=== PATIENT | male | born 1960 | race Caucasian/White ===

== ENCOUNTER 2024-07-08 16:11 | Emergency (ER) | payer OTHER, SELFPAY ==
[2024-07-08 16:11] VITALS: BP 149/83; PULSE 64; RESP 14; TEMP 36.4; O2SAT 95
--- NOTE | 2024-07-08 16:16 | ED_ITS ---
HPI - Skin/Abscess/Foreign Bdy General Chief complaint: Skin/Abscess/Foreign Body Stated complaint: SWOLLEN HAND Time Seen by Provider: 07/08/24 16:16 Source: patient Mode of arrival: ambulatory Limitations: no limitations History of Present Illness HPI narrative: 63-year-old male with a history of hypertension presents to the ED with -- 2 cm splinter which went through his right middle finger. this happened 1 hour ago. tetanus status is uptodate. complaint: other ( Foreign body right middle finger) Onset (ago): hour(s) ( 1 hour ago) Tetanus up to date: yes Location: R hand ( right middle finger palmar aspect of the proximal phalanx) Quality: aching Pain Consistency: constant Associated symptoms: denies other symptoms Treatments prior to arrival: none Related Data Allergies Allergy/AdvReac Type Severity Reaction Status Date / Time No Known Allergies Allergy Verified 07/08/24 16:15 Review of Systems Review of Systems: All systems reviewed & are unremarkable except as noted in HPI and below PMFSH Past Medical History Medical History Hypertension Exam Const: General: no acute distress Orientation/consciousness: patient oriented x3 Limitations: no limitations HENMT: Head: normal to inspection Ears: external ears normal Face/Nose/Sinus: Normal external nose present Face and sinus: normal facial exam Mouth: Yes Normal oral and palatal mucosa present Throat: posterior oropharynx normal Eyes: Conjunctivae: conjunctivae normal Pupils: Equal, round and reactive pupils present EOM: EOMs intact bilaterally Direct Ophthalmoscopy: no photophobia Neck: Neck: normal visual inspection, no lymphadenopathy and no meningeal signs Chest: Chest palpation & inspection: normal inspection of the chest Resp: Effort & Inspection: normal respiratory effort Auscultation: clear to auscultation bilaterally Cardio: Rate: regular rate Rhythm: regular rhythm GI: Auscultation: normal bowel sounds Other: no tenderness/rigidity/rebound. : General: Yes no CVA tenderness Back/Spine/Pelvis: Back: no CVA tenderness Skin: Other: 2 cm splinter passing through and through palmar aspect of the middle finger proximal phalanx. Distal neurovascular bundle is intact. Swelling of the proximal phalanx Neuro: General: patient oriented x3 and moves all extremities Extrem: General: normal to inspection ( foreign body in th) Psych: Affect: normal affect Course Course Emergency Course: foreign body removed from right middle finger Vital Signs Vital signs: Vital Signs Temperature 36.4 C 07/08/24 16:11 Pulse Rate 64 07/08/24 16:11 Respiratory Rate 14 07/08/24 16:11 Blood Pressure 149/83 H 07/08/24 16:11 Pulse Oximetry 95 07/08/24 16:11 Oxygen Delivery Room Air 07/08/24 16:11 Temperature 36.4 C 07/08/24 16:11 Pulse Rate 64 07/08/24 16:11 Respiratory Rate 14 07/08/24 16:11 Blood Pressure 149/83 H 07/08/24 16:11 Pulse Oximetry 95 07/08/24 16:11 Oxygen Delivery Room Air 07/08/24 16:11 Procedures Foreign Body Removal Foreign Body #1: Foreign Body Removal Date: 07/08/24 Foreign Body Removal Time: 16:33 Site: right Description of foreign body: other ( splinters) Sedation/Analgesia: other ( 1% lidocaine infiltration) Technique: removal with forceps Complications: none Neurovascular: normal distal pulse and normal capillary fill MDM - Skin/Abscess/Foreign Bdy MDM Narrative Medical decision making narrative: foreign body right middle finger Differential Diagnosis Differential diagnosis: Likely cellulitis Discharge Plan Discharge Clinical Impression: Foreign body finger Patient Disposition: Home, Self-Care Condition: Stable Instructions: Antibiotic Form, Puncture Wound (ED) Additional Instructions: monitor for infection Patient Language: Burkinan Prescriptions: New sulfamethoxazole-trimethoprim [Bactrim DS] 800-160 mg tablet 1 tablet PO Q12H Qty: 14 0RF Follow-up/Referrals: UNKNOWN,DOCTOR [Primary Care Provider] - Time of Disposition: 16:32
[2024-07-08] MEDS: LIDOCAINE 1% LOCAL INJ 10 ML VIAL 5 ML INFILTRATE (16:26)
== END 2024-07-08 16:40 | disposition home or self-care (01) ==
LOC: CHSED 16:44
PROVIDERS: Emergency Provider Internal Medicine Critical Care Medicine
DX: S60.452A Superficial foreign body of right middle finger, initial encounter (principal); I10 Essential (primary) hypertension; W45.8XXA Other foreign body or object entering through skin, initial encounter
CPT/HCPCS: 99283; J2003